=== PATIENT | female | born 1965 | race Caucasian/White ===

== ENCOUNTER 2020-09-14 06:08 | Day surgery (SDC) | payer OTHER ==
[~2020-09-14] VITALS: Ht 166.4 cm; Wt 69.1 kg
[2020-09-14 07:00] VITALS: BP 145/79
[2020-09-14 07:19] LABS: BASOPHILS % (AUTO) 1 % (0-1); EOSINOPHILS % (AUTO) 10 % (1-7); LYMPHOCYTES % (AUTO) 34 % (22-44); MD NO; MEAN CORPUSCULAR HEMOGLOBIN 33.1 pg (27.0-34.8); MEAN CORPUSCULAR HGB CONC 34.3 g/dL (32.4-35.8); MEAN PLATELET VOLUME 7.5 fL (7.4-10.4); MONOCYTES % (AUTO) 12 % (2-9); NEUTROPHILS % (AUTO) 43 % (42-75); PLATELET COUNT 240 x10^3/uL (130-400); RED BLOOD COUNT 4.18 x10^6/uL (3.82-5.3); RED CELL DISTRIBUTION WIDTH 13.1 % (9.6-15.2)
[2020-09-14] MEDS ORDERED: FLUMAZENIL 0.1 MG/1 ML, 5ML ONE (08:07)
[2020-09-14] MEDS ORDERED: NALOXONE 1 MG/ML, 2ML ONE (08:07)
[2020-09-14] MEDS ORDERED: MIDAZOLAM 1 MG/ML, 5ML ONE (08:07)
[2020-09-14] MEDS ORDERED: FENTANYL PF 100 MCG/2ML ONE (08:07)
== END 2020-09-14 10:30 | disposition home or self-care (01) ==
LOC: OUT 06:08
PROVIDERS: ATTEND Specialist
DX: D70.9 Neutropenia, unspecified (principal); J45.909 Unspecified asthma, uncomplicated; Z79.899 Other long term (current) drug therapy; Z88.5 Allergy status to narcotic agent; Z98.890 Other specified postprocedural states
CPT/HCPCS: 36415; 38222; 77012; 85025; 85060; 85097; 88237; 88264; 88280; 88305; 88311; 88313; 88341; 88342; 99156; 99157; J2250; J3010; J2310